=== PATIENT | female | born 1980 | race Caucasian/White ===

== ENCOUNTER 2017-11-10 17:03 | Emergency (ER) | payer OTHER ==
[~2017-11-10] VITALS: Ht 160 cm; Wt 99.8 kg
[~2017-11-10 17:03] MED LIST: BACTRIM 400-801 EACH PO; BACTRIM DS TAB1 EACH PO; BENZONATATE100 M1 PO; BUSPIRONE HCL10 MG PO; BUSPIRONE HCL15 M1 PO; CYCLOBENZAPRINE10 M1 PO; FLEXERIL10 MG PO; HUMIRA PEN40 MG/0.8 SC; HYDROXYZINE50 MG PO; IBUPROFEN600 M1 PO; LIBRAX CAPSULE1 EACH PO; MELATONIN5 M7 PO; NEXIUM40 M1 PO; PANTOPRAZOLE SO40 M1 PO; PERCOCET 5-3251 EACH PO; PROAIR HFA8.5 GM INH; PROZAC10 MG PO; TRAMADOL50 MG PO; WELLBUTRIN XL300 MG PO; XANAX0.5 MG PO
[2017-11-10 17:11] VITALS: BP 170/84
--- NOTE | 2017-11-10 17:51 | ED NECK/BACK PAIN COMPLAINT ---
History of Present Illness General Chief Complaint: Low Back Pain/Injury Stated Complaint: LWR BACK PAIN X 3DAYS Source: patient Exam Limitations: no limitations Vital Signs & Intake/Output Vital Signs & Intake/Output Vital Signs Date Time Temp Pulse Resp B/P B/P Pulse O2 O2 Flow FiO2 Mean Ox Delivery Rate 11/10 1805 96 16 99 Room Air 11/10 1711 98.3 118 18 170/84 99 Allergies Coded Allergies: shellfish derived (TONGUES. LIPS SWELL, FACIAL RASH 10/15/17) hydrocodone (Mild, GI UPSET AT HIGH DOSES 11/10/17) Reconcile Medications Adalimumab (Humira Pen) 40 MG/0.8 ML PEN.IJ.KIT 1 SYR SC QMON HYROGINITIS ( Reported) Albuterol Sulfate (Proair Hfa) 90 MCG HFA.AER.AD 2 PUF INH PRN RESP. ( Reported) Benzonatate 100 MG CAPSULE 1 CAP PO PRN COUGH (Reported) Buspirone HCl 15 MG TABLET 1 TAB PO BID MENTAL HEALTH (Reported) Cyclobenzaprine HCl 10 MG TABLET 1 TAB PO QPM MUSCLE SPASMS (Reported) Esomeprazole (Nexium) 40 MG CAPSULE.DR 1 CAP PO PRN GI (Reported) Ibuprofen 600 MG TABLET 1 TAB PO PRN PAIN/INFLAMMATION (Reported) with food Lidocaine 5 % ADH..PATCH 1 PAT TOP DAILY PAIN (Reported) Naproxen (Naprosyn) 500 MG TABLET 1 TAB PO BID PRN PAIN Oxycodone HCl/Acetaminophen (Percocet 5-325 MG Tablet) 5 MG-325 MG TABLET 1 TAB PO Q6HR PRN SEVERE PAIN Triage Note: PT TO ER C/C LOW BACK PAIN X 3 DAYS. DENIES INJURY OR TRAUMA. STATES PAIN STARTED AFTER DOING SOME HOUSEWORK. DENIES NUMBNESS/TINGLING TO LOWER EXT. DENIES LOSS OF BLADDER OR BOWEL FX. Triage Nurses Notes Reviewed? yes Onset: Gradual Duration: day(s): (3) Timing: no prior history Quality/Severity: moderate Location: lumbar spine, paraspinous muscles Context: TAKING DOWN [place] TREE Method of Injury: twisted Loss of Consciousness: no loss of consciousness Modifying Factors: immobilization, movement : No Patient currently breastfeeds: No HPI: Patient is a 37-year-old female presenting to the emergency department complaining of low back pain worsening over the past 4 days. Symptoms started after taking down her [place] tree. Has been using ibuprofen and Flexeril without relief. Denies any urinary incontinence or retention. Denies numbness or tingling. No large any weakness. Denies abdominal pain. She has been able to work, sits at work. Symptoms worse with sitting. (Brandi Dunne) Past History Travel History Traveled to [place] past 21 day No Medical History Any Pertinent Medical History? see below for history Neurological: NONE EENT: NONE Cardiovascular: NONE Respiratory: NONE Gastrointestinal: GASTRITIS Hepatic: NONE Renal: NONE Musculoskeletal: NONE Psychiatric: anxiety Endocrine: NONE Blood Disorders: NONE Cancer(s): NONE MUD TRUCKER/Reproductive: NONE Surgical History Surgical History: non-contributory Psychosocial History What is your primary language Qatari Tobacco Use: Current Daily Use Daily Tobacco Use Amount/Type: => 5 Cigarettes daily Family History Hx Contributory? No (Brandi Dunne) Review of Systems Review of Systems Constitutional: Reports: no symptoms. Comments Review of systems: See HPI, All other systems negative. Constitutional, no chills fever or weight loss HEENT: No visual changes no sore throat no congestion Cardiovascular: No chest pain ,palpitation , orthopnea or ankle swelling Skin, no jaundice no rashes Respiratory: No dyspnea cough sputum or hemoptysis GI: No nausea no vomiting : No dysuria No hematuria Muscle skeletal: no neck pain, Neurologic: No numbness no confusion NO HEADACHES Psych: No stress anxiety or depression,. Heme/endocrine: No bruising no bleeding no polyuria or polydipsia Immunology: No splenectomy or history of AIDS (Brandi Dunne) Physical Exam Physical Exam General Appearance: well developed/nourished, no apparent distress, alert, awake , comfortable Neck: normal inspection, supple, full range of motion Comments: Well-developed well-nourished person in no acute distress HEENT: ATRAUMATIC, NORMAL CEPHALIC Neck: Supple, FULL ROM. Back: TENDER TO PALPATION OVER LUMBAR PARASPINAL MUSCLES. Limited range of motion with back flexion and extension. Positive straight leg raise bilaterally at approximately 30. Cardiovascular: Regular rate and rhythms no murmurs rubs or gallops Respiratory: No respiratory distress.breath sounds clear to auscultation bilaterally Abdomen: Soft, nontender nondistended, no appreciable organomegaly. Normal bowel sounds. No ascites Extremity: No edema, no calf tenderness to palpation, normal and equal pulses. Patellar reflexes are 2+ bilaterally. Neuro: Alert oriented x3, motor sensory normal Skin: No appreciable rash on exposed skin, skin is warm and dry. Psych: Mood and affect is normal, memory and judgment is normal. Core Measures CVA/TIA Diagnosis: No (Brandi Dunne) Progress Differential Diagnosis: herniated disc, myofascial strain, pyelo/UTI, sciatica, ureterolithiasis Plan of Care: Current Medications Sig/Indira Start time Last Medication Dose Stop Time Status Admin Ketorolac 30 MG ONCE ONE 11/10 1800 UNVr Tromethamine 11/10 1801 (Toradol) (Brandi Dunne) Departure Departure Time of Disposition: 1800 Disposition: HOME OR SELF CARE Condition: Stable Clinical Impression Primary Impression: Back pain Qualifiers: Back pain location: low back pain Chronicity: acute Back pain laterality: bilateral Sciatica presence: with sciatica Sciatica laterality: bilateral sciatica Qualified Codes: M54.42 - Lumbago with sciatica, left side; M54.41 - Lumbago with sciatica, right side Referrals: Mamadou BEASLEY,Matilda Mendez APRN (PCP/Family) Additional Instructions: Follow-up with orthopedics if symptoms persist, call to make appointment next 5- 7 days. Continue taking at home Flexeril as previously prescribed. Take naproxen as prescribed to help with inflammation and minor pain. For severe pain take [place] as prescribed. Departure Forms: Customer Survey General Discharge Information Prescriptions: Current Visit Scripts Oxycodone HCl/Acetaminophen (Percocet 5-325 MG Tablet) 1 TAB PO Q6HR PRN SEVERE PAIN #10 TAB Naproxen (Naprosyn) 1 TAB PO BID PRN PAIN #20 TAB (Brandi Dunne) PA/CASH APPLICATIONS COORDINATOR Co-Sign Statement Statement: ED Attending supervision documentation- [] I saw and evaluated the patient. I have also reviewed all the pertinent lab results and diagnostic results. I agree with the findings and the plan of care as documented in the PA's/CASH APPLICATIONS COORDINATOR's documentation. [X] I have reviewed the ED Record and agree with the PA's/CASH APPLICATIONS COORDINATOR's documentation. [] Additions or exceptions (if any) to the PAs/CASH APPLICATIONS COORDINATOR's note and plan are summarized below: [] (Nadir BEASLEY,Avery Coreas)
[2017-11-10] MEDS ORDERED: LIDOCAINE1 EACH TOP (18:02)
[2017-11-10] MEDS ORDERED: PERCOCET 5-3251 EACH PO ×2 (18:15→19:26)
[2017-11-10] MEDS ORDERED: NAPROSYN500 M1 PO (18:15)
== END 2017-11-10 18:53 ==
LOC: ERH 17:03
DX: M54.5 Low back pain (principal)
CPT/HCPCS: 96372; J1885

== ENCOUNTER → 2018-04-01 | Day surgery (SDC) | payer OTHER ==
[~2018-04-01] VITALS: Ht 160 cm; Wt 97.5 kg
[~2018-04-01] MED LIST changes: +LIDOCAINE1 EACH TOP; +NAPROSYN500 M1 PO
--- NOTE | 2018-04-07 11:30 | Operative Report ---
Operative/Inv Procedure Report Surgery Date: 04/01/18 Name of Procedure: Bilateral axillary excision of recurrent hidradenitis with complex closure Pre-Operative Diagnosis: Bilateral axillary recurrent hidradenitis Post-Operative Diagnosis: Same Estimated Blood Loss: scant Surgeon/Marine Electronics Repairer: Kika BEASLEY,Rob GUILLAUME Anesthesia: general endotracheal tube Operative/Procedure Note Note: She was positioned supine with both arms abducted after successful induction of general anesthesia and timeouts and IV antibiotics both axilla were clipped prepped and draped in the usual sterile fashion. The hydradenitis was recurrent on both sides there was a lot of scarring and skin sinuses with some drainage on the left there was a thick protruding linear scar and on the right it was more scattered. We approached the right first there was a main area that was bothering her the most of the time we injected local anesthetic and planned elliptical incision encompassing the indurated tissue once inside getting through the scar and granulation you could see was tracking posteriorly we used a probe to identify which sinus was connected and we opened that is well. The resulting excisional cavity was irregular and scarred we cut and removed granulation tissue and scar to the edge of normal appearing yellow fat trying to preserve as much skin as possible and then we lightly wicked the area with iodoform strip extending into the sinus excision below, and then reapproximating in layers using interrupted 3-0 Vicryl sutures subdermally and then for the skin which had to be trimmed to optimize apposition, a running 4-0 nylon to gently reapproximate the skin followed by bacitracin gauze and tape. On the left side the procedure was similar though here there was more scarred heaped up skin it was a linear configuration about 6 cm long which we also excised in one piece trying to limit the amount of skin excision but trying to keep it even uniform thickness on the patient's side this area did not seem to be tracking but it was a little deeper care was taken to avoid any neurovascular injury again try to excise all the scar granulation tissue bordering normal yellow fat and again closing it in layers we had to trim some of the skin as well to try to make sure you're getting full-thickness skin for closure circumferentially, this also required some minimal undermining to decrease the tension, especially in the axilla, we also wicked this side with iodoform strip as well and closed it at the skin level with a running 4-0 nylon again followed by bacitracin gauze and tape. EBL minimal lap and sponge counts correct wound expectancy clean IV fluids crystalloid complications none patient tolerated the procedure well was extubated and returned to recovery room in satisfactory condition.
== END ==
LOC: STS 01:14
DX: L73.2 Hidradenitis suppurativa (principal); K21.9 Gastro-esophageal reflux disease without esophagitis; J45.909 Unspecified asthma, uncomplicated; F17.210 Nicotine dependence, cigarettes, uncomplicated
CPT/HCPCS: 81025; J0131; J0690; J1100; J2001; J2250